=== PATIENT | male | born 1970 | race Caucasian/White ===

== ENCOUNTER 2018-09-07 22:52 | Emergency (ER) | payer OTHER, SELFPAY ==
[2018-09-07 22:53] VITALS: BP 172/90; PULSE 87; RESP 16; TEMP 37.2; O2SAT 100; BMI 34.0
--- NOTE | 2018-09-07 23:00 | RAD_ITS ---
STUDY: X-RAY CHEST REASON FOR EXAM: Male, 47 years old. Chest pain. TECHNIQUE: Single AP portable view of the chest. COMPARISON: Prior comparison studies are not available for review at this time. FINDINGS: Cardiac monitoring leads are present. The lungs are clear and expanded. There is no demonstrated pleural abnormality. Normal size heart. Normal mediastinum and sanchez. Normal visualized pulmonary arteries. There is atherosclerotic tortuosity of the aortic arch and descending thoracic aorta. Normal visualized thoracic spine. Normal visualized ribs, clavicles, and shoulders. There is no demonstrated abnormality of the visualized soft tissue structures of the upper abdomen. RAD/Chest 1 View (Portable) IMPRESSION: No radiographic evidence of acute cardiopulmonary disease. Electronically Signed: Yolis Barboza MD at 0:32 EST , Service support ,
--- NOTE | 2018-09-07 23:00 | EKG12_ITS ---
Test Reason : CP Blood Pressure : / mmHG Vent. Rate : 083 BPM Atrial Rate : 083 BPM P-R Int : 178 ms QRS Dur : 092 ms QT Int : 398 ms P-R-T Axes : 042 -29 031 degrees QTc Int : 467 ms Normal sinus rhythm Leftward axis Confirmed by RENATA SMITH, GABBY ([id number]), manager editorial SUE PATTEN ([id number]) on 09/10/2018 2:33:16 PM Referred By: AFTAB Confirmed By:GABBY YANEZ MD
[2018-09-07 23:03] VITALS: O2SAT 99
[2018-09-07 23:25] LABS: Absolute Neutrophil Count 2.2 X10^3/uL (2.0-7.7); Basophil# 0.05 X10^3/uL; Basophil% 1.1 % (0-1); Eosinophil# 0.16 X10^3/uL; Eosinophils% 3.4 % (0-5); Hematocrit 41.9 % (40-54); Hemoglobin 15.2 g/dl (13.0-16.5); Lymphocyte % 40.3 % (19-41); Mean Corp Hgb Conc 36.3 g/gl (32-36); Mean Corpuscular Hgb 33.2 pg (27.0-32.0); Mean Corpuscular Volume 91.5 fL (80-94); Mean Platelet Vol. 9.9 fl (6.2-12.0); Monocyte# 0.37 X10^3/uL; Monocyte% 7.9 % (0-10); Neutrophil # 2.23 X10^3/uL (2.7-7.7); Neutrophil % 47.3 % (47-70); POSITIVE COUNT NO; POSITIVE DIFFERENTIAL NO; POSITIVE MORPHOLOGY NO; Platelet Count 178 K/mm3 (150-450); RBC Distribution Width SD 39.6 fl (35.1-43.9); Red Blood Count 4.58 M/mm3 (4.6-6.2); White Blood Count 4.7 K/mm3 (4.4-11.0)
[2018-09-07 23:40] LABS: Anion Gap 7 (5-15); BUN 18 mg/dL (7-18); BUN/Creat Ratio 15.8 RATIO (10-20); Calcium,Total 9.1 mg/dL (8.5-10.1); Chloride 104 mmol/L (98-107); Creatinine, Serum 1.14 mg/dL (0.70-1.30); EST Glomerular Filtration Rate 72 mL/min (>60); Est Glom Filt Rate - Afr Amer 88 mL/min (>60); Estimated Creatinine Clearance 80.93 ml/min; Glucose 96 mg/dL (74-106); Potassium 3.5 mmol/L (3.5-5.1); Sodium Level 138 mmol/L (136-145)
[2018-09-07] MEDS: Ipratropium/Albuterol Sulfate 3 ML AMPUL.NEB INHALATION (23:44)
[2018-09-07 23:46] VITALS: PULSE 84; RESP 16
[2018-09-07 23:57] VITALS: BP 141/91; PULSE 75; RESP 16; O2SAT 92
[2018-09-07 23:57] LABS: D-Dimer Quantitative (DVT/PE) < 0.27 FEU/ug/m (0.27-0.49)
--- NOTE | 2018-09-08 00:24 | ED.DCSUM_ITS ---
History of Present Illness Chief Complaint: Chest Pain Informant: Patient Onset: Weeks - 1 Context: Gradual Onset Timing: Waxes and wanes Quality: tightness Location: across chest Current Severity: Mild Maximum Severity: Moderate Worsened by: exertion sometimes, lying supine Relieved by: nothing -- tried albuterol MDI Associated Symptoms: 2-3 short episodes of left chest discomfort w/o radiation in past week Narrative: Mild shortness of breath and chest tightness for about a week. In that amount of time, he has had relatively brief episodes lasting 10 or 20 minutes or so, he is not exactly sure, of mild left-sided chest discomfort that does not radiate or cause dyspnea, diaphoresis, or other associated symptoms when they occur, which has only been 2 or 3 times total in the past week. That discomfort is nonpleuritic, but his tightness is mildly pleuritic. No history of DVT or PE, no recent travel, no leg pain or swelling, no recent surgeries. He has a history of asthma and thinks that the tightness may feel similar but his alb uterol inhaler was not affecting anything at home. Tonight his breathing felt a little worse, it was worse when he lied down, his was recently diagnosed with a pulmonary embolism so their awareness is heightened and since he was having chest symptoms that did not get better with his inhaler, they present for evaluation. He is a non-smoker, has no cardiac risk factors, and there are no first-degree relatives with known coronary artery disease at young ages. - Past Medical History (1) Asthma Status: Chronic Past Medical History - Allergies and Home Meds Allergies/Adverse Reactions: Allergies No Known Allergies Allergy (Verified 09/07/18 23:01) Primary Care Physician: Patrick Calderon DO [Primary Care Provider] - 1 Week if not improving Surgical History: - - knee meniscus Lives: With Family Smoking Status: Never smoker Alcohol: Occasional Drugs: None Review of Systems General: Denies: Chills, Fever, Sweats Eyes: Denies: Visual changes - bilaterally, Diplopia ENT: Reports: Rhinorrhea - and congestion. Denies: Bilateral ear pain, Sore throat Cardiovascular: Reports: Chest pain. Denies: Palpitations, Heart racing Respiratory: Reports: Dyspnea. Denies: Cough, Dyspnea on exertion Gastrointestinal: Denies: Abdominal pain, Nausea, Vomiting, Diarrhea, Melena, Hematochezia Genitourinary: Denies: Dysuria, Hematuria, Frequency Musculoskeletal: Denies: Back pain, Swelling, Extremity Pain Skin: Denies: Rash, Abscess Neurological: Denies: Headache, Weakness, Numbness Psych: Denies: Depression, Anxiety Endocrine: Denies: Polyuria, Polydipsia Hematologic: Denies: Easy bruising, Easy bleeding Allergy: Denies: Swelling of the mouth, Swelling of the tongue Physical Exam Vital Signs/Narrative: Vital Signs Temp Pulse Resp BP Pulse Ox 09/07/18 23:57 75 16 141/91 H 92 09/07/18 23:46 84 16 09/07/18 23:03 99 09/07/18 22:53 99 F 87 16 172/90 H 100 Inital Vital Signs reviewed: Yes General: Well nourished, Well developed Head: Normocephalic, Atraumatic Eyes: Perrl, EOMI ENT: Moist mucous membranes, No rhinorrhea. Negative for: Sinus tenderness Neck: Supple, Nontender, No lymphadenopathy, No JVD Cardiovascular: Regular rate, Regular rhythm, No murmurs, Normal S1, Normal S2 Respiratory: No distress, CTA bilaterally, Chest nontender Abdomen: Soft, Nontender, Nondistended, Normal bowel sounds Back: Nontender, Normal Inspection Extremities: Nontender - no calf tenderness, No edema Skin: Normal color, No rash Neurological: Alert, Oriented x3, Cranial nerves II-XII grossly intact, Normal Strength, Normal Sensation, Normal Gait Psychological: Normal affect Diagnostic/Tx/Re-eval 09/07/18 23:00 Chest 1 View (Portable) [RAD] Stat Laboratory Results 09/07/18 09/07/18 09/07/18 22:58 22:58 22:58 WBC 4.7 RBC 4.58 L Hgb 15.2 Hct 41.9 MCV 91.5 MCH 33.2 H MCHC 36.3 H RDW 12.0 RDW Differential 39.6 Plt Count 178 MPV 9.9 Immature Gran % (Auto) 0.000 Neut % (Auto) 47.3 Lymph % (Auto) 40.3 Douglas % (Auto) 7.9 Eos % (Auto) 3.4 Baso % (Auto) 1.1 H Absolute Neuts (auto) 2.2 Absolute Lymphs (auto) 1.90 Total Counted Not Reportable D-Dimer Quant (PE/DVT) < 0.27 L Sodium 138 Potassium 3.5 Chloride 104 Carbon Dioxide 27.0 Anion Gap 7 BUN 18 Creatinine 1.14 Estim Creat Clear Calc 80.93 Est GFR (MDRD) Af Amer 88 Est GFR (MDRD) Non-Af 72 BUN/Creatinine Ratio 15.8 Glucose 96 Calcium 9.1 Troponin I < 0.015 - Rhythm Strip Rhythm Strip: Sinus Rhythm Rate: 80 Ectopy: None - EKG Initial EKG Interpretation: Sinus Rhythm, No Acute Injury Pattern, - - leftward axis. normal EKG. Prior: No Prior - Medical Decision Making FAREED score is 0. EKG is normal. His troponin is also negative, and his d-dimer is negative, essentially ruling out pulmonary embolus as etiology for his current symptoms. After a dual nebulizer treatment, he had some mild improvement but his symptoms are not severe at this time. His chest x-ray is normal, showing no signs of pneumonia or other acute intrathoracic pathology. My suspicion is that this is his asthma, he is having some rhinorrhea and congestion although he is not coughing, and the weather/temperatures have been erratic lately, varying from the high 20s to 60 ?F, which could also be related to an asthma exacerbation. We discussed trying steroids and following up, he is amenable to that. After discussing options, he was amenable to an injection of Kenalog. Encouraged to follow-up with his doctor for persistent or worsening symptoms, or he can come back to the ER. ED Disposition - Plan for ED Patient: Disposition: Home or Assisted Living Chief Complaint: Chest Pain Diagnosis: Intermittent left-sided chest pain, Chest tightness, Asthma exacerbation Instructions: Triamcinolone Hexacetonide Suspension for injection, ED Reactive Airway Disease, ED Chest Pain NonCardiac Referrals: Patrick Calderon DO [Primary Care Provider] - 1 Week if not improving
[2018-09-08] MEDS: Triamcinolone Acetonide 40 MG/ML Vial IM (00:33)
[2018-09-08 00:37] VITALS: BP 138/78; PULSE 77; RESP 16; O2SAT 96
== END 2018-09-08 00:54 | disposition home or self-care (01) ==
PROVIDERS: Emergency Provider Emergency Medicine; Family Provider Student in an Organized Health Care Education/Training Program; PCP Student in an Organized Health Care Education/Training Program
DX: R07.89 Other chest pain (principal); J45.901 Unspecified asthma with (acute) exacerbation
CPT/HCPCS: 71045; 80048; 84484; 85025; 85379; 93005; 94640; 99285; A4216

== ENCOUNTER 2019-02-25 05:57 | Day surgery (SDC) | payer OTHER, SELFPAY ==
[2019-02-25 06:29] VITALS: BP 131/90; PULSE 51; RESP 16; TEMP 36.7; O2SAT 99; BMI 30.2
--- NOTE | 2019-02-25 07:06 | H&P.OPEN ---
History of Present Illness Date of Admission: 02/25/19 The patient is a 48 year old M who presents for screening colonoscopy Past Medical/Surgical History - Planned Operation Planned Operative Procedure/s: COLONOSCOPY Date of Operative Procedure: 02/25/19 Permit Signed: Yes S.O.S: No Is This Patient Having a Total Joint: No - Previous Hospitalizations/Surgeries HX Hospitalizations: No HX of Surgeries: KIRSTY ARTHROSCOPIC KNEE PROCEDURES. WISDOM TEETH Any Problems With Anesthesia: No You/Your Family Experience Fever (Hyperthermia) With Anes: No Cholinesterase deficiency: No - Cardiovascular Hx Chest Pain within Last 2 months: No - 09/07/18 CP. ER VISIT R/O HEART Hx of Irregular Heartbeat and/or Afib: No Hx Heart Attack: No Hx Congestive Heart Failure: No Hx Rheumatic Fever: No Hx Hypertension: No Hx Internal Defibrillator: No Hx Pacemaker: No Hx Cardiac Catheterization: No Hx Cardiac Surgery/Stents/Etc.: No Hx Stress Test: No HX Edema: No Hx Pain in Legs when Walking/Leg Cramps: No - Respiratory Chronic Cough: No HX of Shortness of Breath: No Hoarseness: No Hx Chronic Obstructive Pulmonary Disease (COPD): No Hx Asthma: Yes Hx Emphysema: No Hx Sleep Apnea: No Hx Oxygen Use at Home: No Hx Respiratory Tract Infection/Cold (presently): No Do You Snore Loudly (louder than talking or can be heard): No Do You Often Feel Tired/ Fatigued/ Sleepy Dring Daytime?: No Has Anyone Observed You Stop Breathing During Sleep?: No Result (for STOP score): Negative Hx Smoking: No Smoking Status: Never smoker - Gastrointestinal Hx Gastroesophageal Reflux: Yes - OCCAS. Controlled With Meds: No Hx Gastrointestinal Disorders: No Hx Gastrointestinal Bleed: No Hx Ulcer: No Hx Hiatal Hernia: No Difficulty Chewing/Swallowing: No Recent Onset of Swallowing Problems: No Special diet followed at home: No Hx Unplanned Weight Loss of 20#: No HX Unplanned Weight Gain of 20#: No - Neurological Hx Seizures: No HX Syncope/Blackout Spells/Unconsciousness: No Hx CVA/Stroke: No Hx Transient Ischemic Attacks (TIA): No Hx Multiple Sclerosis: No Hx Parkinson's Disease: No Hx Head/Neck Injury: No Hx Headaches: No Hx Back Injury/Pain: No Recent Onset of Speech Difficulty: No Restless Legs: No Does patient have nerve stimulator: No - Blood Disorder Hx Leukemia: No Bleeding Tendencies: No Hx Deep Vein Thrombosis: No Hx High Cholesterol: No Blood Transmitted Disease: No Hx Hepatitis: No Hx Cirrhosis: No Hx Anemia: No Hx Blood Disorders: No - Genitourinary Hx Renal Disease: No - Musculoskeletal Hx Arthritis: No Hx Rheumatoid Arthritis: No Hx Gout: No Recent Onset of an Orthopedic Problem: No - Endocrine Hx Diabetes: No Thyroid Disease: No Hx Steroid Therapy: Yes - CORTISONE 05/27 ALLERGIES KENALOG - Psycho/Social Hx Substance Use: No Hx Alcohol Use: Yes - RARELY Hx Anxiety: No Hx Depression: No Mental Illness: No Hx Dementia: No - Miscellaneous Hx Cancer: No Recent Exposure to Contagious Disease: No Active MRSA: No Hx of C-Diff: No Any Loose Teeth: No Allergies No Known Allergies Allergy (Verified 02/19/19 11:59) - Discharge Is Pt Admitted From a Assisted, or a Mcfp: No Who Could Help: After D/C, Where Do you Plan to Go: Return Home - Physical Exam General: Alert, Oriented x3 Lungs: Clear to auscultation Cardiovascular: Regular rate, Regular Rhythm, No murmurs Abdomen: Bowel Sounds Present, Soft, Non Tender, Non-Distended Vital Signs Temp Pulse Resp BP Pulse Ox 98.0 F 51 L 16 131/90 H 99 02/25/19 06:29 02/25/19 06:29 02/25/19 06:29 02/25/19 06:29 02/25/19 06:29 Oxygen Delivery Method Room Air Weight: 210 lb 8.663 oz Body Mass Index (BMI) 30.2 Assessment/Plan Plan is to perform a colonoscopy Surgery Risks - Colonoscopy Risks Include but are not Limited To: Risks include but are not limited to: Bleeding, perforation requiring further surgery, inability to complete colonoscopy requiring barium enema.
[2019-02-25 07:30] VITALS: BP 114/69; BP 131/90; PULSE 57; RESP 16; TEMP 36.5; O2SAT 98
--- NOTE | 2019-02-25 07:34 | OP.ENDO_ITS ---
02/25/2019 Patrick Calderon [address] [id number] Re : Colonoscopy procedure for Juan Miguel Uribe Dear Dr. Calderon This procedure was performed on Monday, February 25, 2019. My impressions and recommendations are as follows: Impressions : - Non-bleeding internal hemorrhoids. - Healing anal fissure found on perianal exam with anal tag - No specimens collected. Recommendations : - Discharge patient to home. - Resume previous diet. - Continue present medications. - Repeat colonoscopy in 10 years for screening purposes. - Return to primary care physician PRN. My findings are described in the full procedure note, which is enclosed. If I can be of further assistance, please feel free to contact me at Doctor phone number(s): , Fax: [phone], Work: . Sincerely, MD Parvez Fischer MD 02/25/2019 7:33:30 AM This report has been signed electronically.
[2019-02-25 07:35] VITALS: BP 117/72; BP 131/90; PULSE 57; RESP 16; O2SAT 100
[2019-02-25 07:40] VITALS: BP 122/79; BP 131/90; PULSE 57; RESP 16; O2SAT 99
[2019-02-25 07:45] VITALS: BP 129/85; BP 131/90; PULSE 57; RESP 16; TEMP 36.7; O2SAT 96
[2019-02-25 08:07] VITALS: BP 131/90
== END 2019-02-25 08:08 | disposition home or self-care (01) ==
LOC: EN 05:58 → AC 05:59
PROVIDERS: Family Provider Student in an Organized Health Care Education/Training Program; PCP Student in an Organized Health Care Education/Training Program; Referring Provider Surgery; Visit Provider Surgery
PROC: 0DJD8ZZ Inspection of Lower Intestinal Tract, Via Natural or Artificial Opening Endoscopic (ICD-10-PCS; CPT 45378; principal; 2019-02-25 06:55)
DX: Z12.11 Encounter for screening for malignant neoplasm of colon (principal); K21.9 Gastro-esophageal reflux disease without esophagitis; J45.909 Unspecified asthma, uncomplicated; K64.8 Other hemorrhoids; K60.2 Anal fissure, unspecified; K64.4 Residual hemorrhoidal skin tags
CPT/HCPCS: 45378; J7120; J1610

== ENCOUNTER 2023-03-10 11:45 | Emergency (ER) | payer OTHER, SELFPAY ==
[2023-03-10 11:46] VITALS: BP 138/87; PULSE 59; RESP 16; TEMP 36.8; O2SAT 100; BMI 29.2
--- NOTE | 2023-03-10 12:04 | RAD_ITS ---
INDICATION: injury EXAMINATION/TECHNIQUE: X-RAY - XR Ribs Unilateral W/ PA Chest Min 3 Views COMPARISON: Prior chest x-ray of 09/07/2018. FINDINGS: SOFT TISSUES: No soft tissue swelling or gas. BONES: No visualized displaced rib fracture. No sclerotic or destructive changes observed. VISUALIZED LUNGS: Clear. No pneumothorax. RAD/Ribs Uni Min 3V w/PA Chest IMPRESSION: No evidence of displaced rib fracture. Electronically Signed: Ace Godfrey MD at 12:53 EDT ,
--- NOTE | 2023-03-10 12:05 | EX.ED.GENINJ ---
HPI History of Present Illness Chief Complaint: Chest Other Detail of Chief Complaint: Left chest injury Informant: patient and spouse/S.O. Onset/Context/Timing Onset: Weeks (2) Narrative Narrative: Patient presents to the emergency department complaint of left chest injury that occurred 6 days ago. Patient states that he was getting a cow into a shoot and he tried to push the gate forward with his chest and the cow pushed back against the gate and the gait struck him in the left side of the chest. Patient had discomfort right away. He denies shortness of breath. He does have pain with certain movements. Tetanus Immunization: Unknown Recent Illness/Hospitalization: No PFSH PFSH Home Medications albuterol sulfate 90 mcg/actuation aerosol inhaler (ProAir HFA) 2 puff inhalation Q4H PRN PRN Sob &/Or Wheezing 09/07/18 [History Last Taken Unknown] loratadine 10 mg tablet (Allergy Relief (loratadine)) 10 mg PO DAILY PRN Allergies 09/07/18 [History Last Taken Unknown] hydrocodone-acetaminophen 5-325mg 5mg-325mg 1 tab PO Q4H PRN PRN Pain 2 days #10 TABLETS 03/10/23 [Rx Last Taken Unknown] Allergy/AdvReac Type Severity Reaction Status Date / Time No Known Allergies Allergy Verified 03/10/23 11:47 Social History Smoking Status: Never smoker ROS ROS ED Review of Systems ROS Unobtainable: other Constitutional Constitutional ED: Reports lethargy; Denies chills, fever(s), sweats or weight loss Eyes Eyes: Denies blurry vision, change in vision or diplopia ENT ENT ED: Denies rhinorrhea or sore throat Cardiovascular Cardiovascular: Reports chest pain; Denies orthopnea or racing heartbeat Respiratory/Chest Respiratory/Chest: Denies cough, dyspnea, dyspnea on exertion, orthopnea or sputum Gastrointestinal Gastrointestinal: Denies abdominal pain, diarrhea, nausea or vomiting Genitourinary Genitourinary ED: Denies dysuria, hematuria or urinary frequency Musculoskeletal Musculoskeletal: Denies arthralgias, back pain, myalgias or neck pain Integumentary Denies abscess, Abrasions or rash Neurologic Neurologic: Denies headache(s) or weakness Psychiatric Psychiatric: Denies anxiety, depression or suicidal thoughts Endocrine Endocrinology: Denies polydipsia, polyphagia or polyuria Hematologic/Lymphatic Hematologic/Lymphatic: Denies easy bleeding, easy bruising or lymphadenopathy Allergic/Immunologic Allergic/Immunologic ED: Denies mouth swelling, tongue swelling or urticaria EXAM Physical Exam Const Vital Signs: 03/10/23 11:46 03/10/23 11:54 03/10/23 11:54 Temperature 98.2 F Temperature Source Temporal Pulse Rate 59 L Respiratory Rate 16 Respiratory Pattern Normal Normal Blood Pressure 138/87 H Blood Pressure Mean 104 Pulse Ox 100 Oxygen Delivery Method Room Air Positive well nourished and well developed General Appearance ED: well developed and NAD HEENT Reports TM's clear and moist mucous membranes normocephalic and atraumatic; Negative for trauma or tenderness Tympanic Membrane ED: Yes TM's clear Eyes PERRL and EOMs intact bilaterally General Eye ED: Negative for pale conjunctiva or scleral icterus Neck no lymphadenopathy, supple and no JVD General: Negative for tenderness Chest Wall inspection of chest normal Chest Narrative: Tenderness palpation over the left anterior chest wall. There is no ecchymosis or bruising. No subcu emphysema noted. No obvious deformity. Chest: Negative for tenderness Resp normal respiratory effort and clear to auscultation bilaterally Effort and Inspection: Negative for respiratory distress or pain with movement Auscultation: Negative for rhonchi, wheezes or diminished lung sounds Cardio regular rate, regular rhythm, S1 normal heart sound, S2 normal heart sound and no murmurs Peripheral Pulses: pulses 2+ throughout GI normal to inspection, nondistended, normoactive bowel sounds, soft to palpation, non-tender, non-distended and no masses Back/Spine no CVA tenderness and no thoracic nor lumbar tenderness Extremity normal to inspection General Extremety ED: Negative for edema General Extremity: Negative for edema Neuro oriented x3, CN's II-XII intact bilaterally, no sensory deficits noted and gait normal Sensorium / Orientation: awake, alert, oriented to person, oriented to place and oriented to time Motor Exam: strength 5/5 throughout and strength abnormal Psych mental status grossly normal Skin no rashes or lesions noted and no wounds MDM MDM MDM Narrative Medical decision making narrative: Patient presents with injury to his chest that occurred 6 days ago. X-rays reveal no evidence of fracture or dislocation. Patient will be given a prescription for a few [place] for pain. He is advised to follow-up with his primary care physician 5 to 7 days. Advised to return if chest pain, hemoptysis, fever, or condition worsening way. Radiography Diagnostic Testing: Clinical Impression(s) from Imaging Studies Ribs w/Chest X-Ray 03/10/23 12:04 IMPRESSION: No evidence of displaced rib fracture. Electronically Signed: Ace Godfrey MD at 12:53 EDT , Three-view x-rays left ribs with PA chest obtained interpreted by myself as no acute fractures and no evidence of pneumothorax. Radiology in agreement. Discharge Plan Triage Chief Complaint: Chest Other ED Provider: Hardeep Garcia Dx/Rx/DC Orders Clinical Impression: Chest wall contusion Instructions: ED Chest Wall Contusion Prescriptions: New hydrocodone-acetaminophen [hydrocodone-acetaminophen] 5-325 mg tablet 1 tab PO Q4H PRN PRN (Reason: Pain) 2 Days Qty: 10 0RF No Action albuterol sulfate [ProAir HFA] 1 PUFF inhaler 2 puff inhalation Q4H PRN PRN (Reason: Sob &/Or Wheezing) loratadine [Allergy Relief (loratadine)] 10 MG tablet 10 mg PO DAILY PRN (Reason: Allergies) Primary Care Provider: Patrick Calderon Referrals: Patrick Calderon DO [Primary Care Provider] - 5-7 Days Disposition Disposition: Home, Self Care
== END 2023-03-10 13:16 | disposition home or self-care (01) ==
PROVIDERS: Emergency Provider Emergency Medicine; PCP Student in an Organized Health Care Education/Training Program; Visit Provider Emergency Medicine
DX: S20.20XA Contusion of thorax, unspecified, initial encounter (principal); W22.8XXA Striking against or struck by other objects, initial encounter
CPT/HCPCS: 71101; 99283